=== PATIENT | female | born 1980 | race Caucasian/White ===

== ENCOUNTER 2018-08-17 04:10 | Emergency (ER) | payer OTHER ==
[~2018-08-17] VITALS: Ht 160 cm; Wt 56.7 kg
[2018-08-17 04:21] VITALS: BP 124/69
--- NOTE | 2018-08-17 04:53 | PHYS DOC ---
Past History Past Medical History: Depression, Seizure, UTI Past Surgical History: Other Additional Past Surgical Histo: abdominoplasty, breast augmentation Smoking: Non-smoker Alcohol Use: Rarely Drug Use: None Adult General Chief Complaint Chief Complaint: PAIN ON URINATION HPI HPI Patient is a 38-year-old female presents complaining of dysuria as well as hematuria. She noticed this on urination approximately 90 minutes ago. She took a dose of Pyridium to help with the discomfort. This is like previous urinary tract infections. Denies any vaginal bleeding or discharge. Some mild right sided lower back pain. No nausea or vomiting. No fever. Symptoms are moderate in intensity when urinating.[] Review of Systems Review of Systems Constitutional: Denies fever or chills [] Eyes: Denies change in visual acuity, redness, or eye pain [] HENT: Denies nasal congestion or sore throat [] Respiratory: Denies cough or shortness of breath [] Cardiovascular: No chest pain or palpitations[] GI: Denies abdominal pain, nausea, vomiting, bloody stools or diarrhea [] : See history of prior illness[] Musculoskeletal: Denies back pain or joint pain [] Integument: Denies rash or skin lesions [] Neurologic: Denies headache, focal weakness or sensory changes [] Endocrine: Denies polyuria or polydipsia [] All other systems were reviewed and found to be within normal limits, except as documented in this note. Allergies Allergies Allergies Coded Allergies Type Severity Reaction Last Updated Verified iodine Allergy Mild Rash 08/17/18 Yes Physical Exam Physical Exam Constitutional: Well developed, well nourished, no acute distress, non-toxic appearance. [] HENT: Normocephalic, atraumatic, bilateral external ears normal, oropharynx moist, no oral exudates, nose normal. [] Eyes: PERRLA, EOMI, conjunctiva normal, no discharge. [] Neck: Normal range of motion, no tenderness, supple, no stridor. [] Cardiovascular:Heart rate regular rhythm, no murmur [] Lungs & Thorax: Bilateral breath sounds clear to auscultation [] Abdomen: Bowel sounds normal, soft, no tenderness, no masses, no pulsatile masses. [] Skin: Warm, dry, no erythema, no rash. [] Back: No tenderness, no CVA tenderness. [] Extremities: No tenderness, no cyanosis, no clubbing, ROM intact, no edema. [] Neurologic: Alert and oriented X 3, normal motor function, normal sensory function, no focal deficits noted. [] Psychologic: Affect normal, judgement normal, mood normal. [] Current Patient Data Vital Signs Vital Signs Date Time Temp Pulse Resp B/P (MAP) Pulse Ox O2 Delivery O2 Flow Rate FiO2 08/17/18 04:21 97.8 67 16 100 Lab Results Laboratory Tests Test 08/17/18 04:44 POC Urine HCG, Qualitative hcg negative (Negative) EKG EKG [] Radiology/Procedures Radiology/Procedures [] Course & Med Decision Making Course & Med Decision Making Pertinent Labs and Imaging studies reviewed. (See chart for details) ED course: Patient arrived, was placed in bed, and tolerated exam well. After the return of laboratory studies, these were discussed with the patient voiced understanding. She was given initial dose of antibiotics in the emergency department as well as antipyretics. She tolerated these well. She was discharged in improved condition with all questions answered. Medical decision making: Patient appears to have a hemorrhagic urinary tract infection. There is no evidence of pyelonephritis on exam. No evidence of systemic toxicity. She is not .[] Dragon Disclaimer Dragon Disclaimer This electronic medical record was generated, in whole or in part, using a voice recognition dictation system. Departure Departure: Impression: Primary Impression: Urinary tract infection Disposition: 01 HOME, SELF-CARE Condition: IMPROVED Referrals: VIVEK DAVID (PCP) Follow-up in 2 days Patient Instructions: Urinary Tract Infection Additional Instructions: Drink plenty of fluids. Follow-up with your regular doctor in 2 days. Return to the ER if worsening discomfort, fever of more than 101, unable to tolerate liquids, or any other concerns. Scripts Meloxicam (MELOXICAM) 7.5 Mg Tablet 7.5 MG PO DAILY for PAIN, #20 TAB Prov: ISMA HENDRIX DO 08/17/18 Cephalexin (KEFLEX) 500 Mg Capsule 500 MG PO TID for UTI for 10 Days, #30 CAP Prov: ISMA HENDRIX DO 08/17/18 Problem Qualifiers Primary Impression: Urinary tract infection Urinary tract infection type: site unspecified Hematuria presence: with hematuria Qualified Codes: N39.0 - Urinary tract infection, site not specified; R31.9 - Hematuria, unspecified ISMA HENDRIX DO Aug 17, 2018 04:52
[2018-08-17 05:01] LABS: COLOR,URINE BROWN
[2018-08-17 05:02] LABS: BACTERIA,URINE FEW /HPF (0-FEW); BILIRUBIN,URINE NEG (NEG); CLARITY,URINE CLOUDY; GLUCOSE,URINE NEG (NEG); NITRITE,URINE POS (NEG); RBC,URINE TNTC /HPF (0-2); SQUAMOUS EPITHELIAL CELL,UR FEW /LPF; UROBILINOGEN,URINE 1 mg/dL (0.2 mg/dL); WBC,URINE TNTC /HPF (0-4)
[2018-08-17] MEDS ORDERED: IBUPROFEN 600 MG TABLET. PO ONE (05:08)
[2018-08-17] MEDS ORDERED: CEPHALEXIN 250 MG CAPSULE ONE (05:08)
[2018-08-17] MEDS ORDERED: CEPH-264 PO (05:09)
[2018-08-17] MEDS ORDERED: MELO7.5T29 PO (05:09)
[2018-08-17] MEDS: IBUPROFEN 600 MG TABLET. PO ONE (05:11)
[2018-08-17] MEDS: CEPHALEXIN 250 MG CAPSULE PO ONE (05:11)
== END 2018-08-17 05:17 | disposition home or self-care (01) ==
LOC: ER 04:10
DX: N39.0 Urinary tract infection, site not specified (principal); R31.9 Hematuria, unspecified; M54.5 Low back pain; F32.9 Major depressive disorder, single episode, unspecified; Z87.440 Personal history of urinary (tract) infections; Z88.8 Allergy status to other drugs, medicaments and biological substances
CPT/HCPCS: 81001; 81025; 87086; 99284

== ENCOUNTER 2019-06-11 12:51 | Emergency (ER) | payer OTHER ==
[~2019-06-11] VITALS: Ht 160 cm; Wt 57.6 kg
[2019-06-11 12:51] VITALS: BP 118/48
[~2019-06-11 12:51] MED LIST: CEPH-264 PO; MELO7.5T29 PO
--- NOTE | 2019-06-11 13:41 | RAD ---
CHEST AP ONLY Clinical History: Chest pain Technique: AP view of the chest was obtained at 06/11/2019 1:10 PM. Comparison: None. Findings: The cardiomediastinal silhouette is normal. The pulmonary vasculature is normal. The base of lungs is slightly underpenetrated this could be secondary to breast implants. There is no focal consolidation. Impression: No evidence of an acute cardiopulmonary process. Electronically signed by: Moise Solis III, MD (06/11/2019 1:38 PM) [id number]
--- NOTE | 2019-06-11 13:45 | PHYS DOC ---
Past History Past Medical History: Depression, Seizure, UTI Past Surgical History: Other Additional Past Surgical Histo: abdominoplasty, breast augmentation Smoking: Non-smoker Alcohol Use: Rarely Drug Use: None General Adult EDM: Chief Complaint: CHEST PAIN HPI: HPI: Patient is a 39-year-old female who presented to ER today for evaluation of chest pain substernally that last for few seconds at been going on for 2 weeks. Patient is not a smoker, she has no history hypertension, no history of blood clot disorder, no history of diabetes, no history of high cholesterol. Patient had no family history of blood clot disorder or heart disease. Patient denies any recent travel or operation. Patient works out regularly, she is not a smoker, not on control medication. Patient has no significant risks for having coronary artery disease or blood clot disorder. Patient denies any cough or fever. Review of Systems: Review of Systems: Constitutional: Denies fever or chills Eyes: Denies change in visual acuity HENT: Denies nasal congestion or sore throat Respiratory: Denies cough or shortness of breath Cardiovascular: Denies chest pain or edema GI: Denies abdominal pain, nausea, vomiting, bloody stools or diarrhea : Denies dysuria Musculoskeletal: Denies back pain or joint pain Integument: Denies rash Neurologic: Denies headache, focal weakness or sensory changes Endocrine: Denies polyuria or polydipsia Lymphatic: Denies swollen glands Psychiatric: Denies depression or anxiety Heart Score: HEART Score for Chest Pain: HEART Score for Chest Pain Response (Comments) Value History Slighlty/Non-Suspicious 0 ECG Normal 0 Age < 45 0 Risk Factors No Risk Factors 0 Troponin < Normal Limit 0 Total 0 Risk Factors: Risk Factors: DM, Current or recent (<one month) smoker, HTN, HLP, family history of CAD, obesity. Risk Scores: Score 0 - 3: 2.5% MACE over next 6 weeks - Discharge Home Score 4 - 6: 20.3% MACE over next 6 weeks - Admit for Clinical Observation Score 7 - 10: 72.7% MACE over next 6 weeks - Early Invasive Strategies Allergies: Allergies: Allergies Coded Allergies Type Severity Reaction Last Updated Verified iodine Allergy Mild Rash 08/17/18 Yes Physical Exam: PE: Constitutional: Well developed, well nourished, no acute distress, non-toxic appearance. [] HENT: Normocephalic, atraumatic, bilateral external ears normal, oropharynx moist, no oral exudates, nose normal. [] Eyes: PERRLA, EOMI, conjunctiva normal, no discharge. [] Neck: Normal range of motion, no tenderness, supple, no stridor. [] Cardiovascular:Heart rate regular rhythm, no murmur [] Lungs & Thorax: Bilateral breath sounds clear to auscultation [] Abdomen: Bowel sounds normal, soft, no tenderness, no masses, no pulsatile masses. [] Skin: Warm, dry, no erythema, no rash. [] Back: No tenderness, no CVA tenderness. [] Extremities: No tenderness, no cyanosis, no clubbing, ROM intact, no edema. [] Neurologic: Alert and oriented X 3, normal motor function, normal sensory function, no focal deficits noted. [] Psychologic: Affect normal, judgement normal, mood normal. [] Current Patient Data: Vital Signs: Vital Signs Date Time Temp Pulse Resp B/P (MAP) Pulse Ox O2 Delivery O2 Flow Rate FiO2 06/11/19 12:51 97.9 75 12 118/48 (71) 100 Room Air EKG: EKG: EKG WAS DONE AT 1256 RATE OF 68 BPM, NSR, NO STEMI, THERE IS SINGLE PVC. [] Radiology/Procedures: Radiology/Procedures: [][address] [address] IMAGING REPORT Signed PATIENT: BROOKS STOCK LACCOUNT: [id number] : 1980 LOCATION: ER AGE: 39 SEX: F EXAM STATUS: REG ER ORD. PHYSICIAN: MANDIE RANDALL DO REASON: chest pain PROCEDURE: CHEST AP ONLY CHEST AP ONLY Clinical History: Chest pain Technique: AP view of the chest was obtained at 06/11/2019 1:10 PM. Comparison: None. Findings: The cardiomediastinal silhouette is normal. The pulmonary vasculature is normal. The base of lungs is slightly underpenetrated this could be secondary to breast implants. There is no focal consolidation. Impression: No evidence of an acute cardiopulmonary process. Electronically signed by: Rl Moreno III, MD (06/11/2019 1:38 PM) [id number] DICTATED AND SIGNED BY: RL MORENO III, MD DATE: 06/11/19 4812 CC: VIVEK DAVID; MANDIE RANDALL DO ~ Course & Med Decision Making: Course & Med Decision Making Pertinent Labs and Imaging studies reviewed. (See chart for details) CHEST PAIN, NONSPECIFIC: The patient presents today with chest pain lasting [for a few seconds each over 2 weeks period]. The quality of the pain is very atypical for acute coronary syndrome. Additionally, the patient has minimal risk factors for coronary artery disease with a suggestion of good exercise tolerance and does not have ongoing chest pain. Given the duration of the chest pain , I do feel that from a risk stratification standpoint, the patient can be safely discharged home for outpatient evaluation by the primary care physician. The patient, however, fully understands that the evaluation today in no way rules out coronary artery disease as a possibility and that close followup is necessary as a component of a complete evaluation. The patient also understands that should the pain change, or become more frequent, more intense, or should the patient develop new symptoms, the patient is instructed to return immediately to the emergency room for reevaluation. However, at this time, given the lack of significant risk factors in conjunction with an atypical history in conjunction with normal EKG, CHEST XRAY despite the duration of pain and an unchanged or normal EKG, I do feel that the information available to us at this time suggests that this is unlikely to represent acute plaque rupture and that the risk of morbidity or mortality is low. Also considered today was the possibility of a pneumothorax, pneumonia, pulmonary embolus, mediastinitis, and thoracic aortic dissection. However, after careful consideration of the patient's clinical history and presentation and findings, there is no evidence to suggest any of these as a likely diagnosis and therefore feel that the continued pursuit of these etiologies is not warranted at this time. Dragon Disclaimer: Dragon Disclaimer: This electronic medical record was generated, in whole or in part, using a voice recognition dictation system. Departure Departure: Impression: Primary Impression: Chest pain Disposition: 01 HOME, SELF-CARE Condition: STABLE Referrals: VIVEK DAVID (PCP) MARICHUY CASTELLANOS MD PLEASE CALL THIS [facility] FOR OUTPATIENT EVALUATION Patient Instructions: Chest Pain (Nonspecific) MANDIE RANDALL DO Jun 11, 2019 13:45
--- NOTE | 2019-06-12 07:36 | EKG ---
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
== END 2019-06-11 13:50 | disposition home or self-care (01) ==
LOC: ER 12:51
DX: R07.2 Precordial pain (principal); Z87.440 Personal history of urinary (tract) infections; Z88.8 Allergy status to other drugs, medicaments and biological substances
CPT/HCPCS: 71045; 93005; 99283

== ENCOUNTER 2020-05-26 10:35 | Emergency (ER) | payer OTHER ==
[~2020-05-26] VITALS: Ht 160 cm; Wt 57.6 kg
[2020-05-26 11:00] VITALS: BP 119/78
--- NOTE | 2020-05-26 12:24 | PHYS DOC ---
Past History Past Medical History: Anxiety, Depression, Seizure, UTI Past Surgical History: Other Additional Past Surgical Histo: abdominoplasty, breast augmentation Smoking: Non-smoker Alcohol Use: Rarely Drug Use: None Adult General Chief Complaint Chief Complaint: Palpitations [facility] HPI Patient is a 40yo female presenting via POV for palpitations. These have been intermittent for ~2 weeks. Nothing known makes better or worse. Patient reports feelings of missing a beat, no ripping or tearing chest pain. Associated symptoms include mild SHOB and vague numbness in bilateral UEs. She has no cardiac history, no significant FHx cardiac disease, no concerning risk factors for CAD Review of Systems Review of Systems Fourteen body systems of review of systems have been reviewed. See HPI for pertinent positives and negative responses, other church all other systems are negative, non-pertinent or non-contributory Allergies Allergies Allergies Coded Allergies Type Severity Reaction Last Updated Verified iodine Allergy Mild Rash 08/17/18 Yes Physical Exam Physical Exam Constitutional: Well developed, well nourished, no acute distress, non-toxic appearance. HENT: Normocephalic, atraumatic, bilateral external ears normal, oropharynx moist, no oral exudates, nose normal. Eyes: PERRLA, EOMI, conjunctiva normal, no discharge. Neck: Normal range of motion, no tenderness, supple, no stridor. Cardiovascular: Heart rate regular, sinus rhythm, no murmurs rubs or gallops Lungs & Thorax: Bilateral breath sounds clear to auscultation Abdomen: Bowel sounds normal, soft, no tenderness, no masses, no pulsatile masses. Nonsurgical abdomen, no peritoneal signs Skin: Warm, dry, no erythema, no rash. Back: No tenderness, no CVA tenderness. Extremities: No tenderness, no cyanosis, no clubbing, ROM intact, no edema. Neurologic: Alert and oriented X 3, grossly normal motor & sensory function, no focal deficits noted. Psychologic: Affect normal, judgement normal, mood normal. Current Patient Data Vital Signs Vital Signs Date Time Temp Pulse Resp B/P (MAP) Pulse Ox O2 Delivery O2 Flow Rate FiO2 05/26/20 11:00 98.0 75 22 119/78 (92) 100 Lab Results Current Medications Medications (Trade) Dose Ordered Sig/Ralf Route PRN Reason Start Time Stop Time Status Last Admin Dose Admin Aspirin (Aspirin Chewable) 162 mg 1X ONCE PO 05/26/20 12:30 05/26/20 12:44 DC 05/26/20 13:11 Sodium Chloride 1,000 ml @ 1,000 mls/hr 1X ONCE IV 05/26/20 12:45 05/26/20 13:44 DC 05/26/20 13:11 EKG EKG EKG ordered and interpreted by myself at 1100 hrs. as sinus rhythm at 75 bpm, unremarkable intervals, no axis deviation, no acute ischemic findings, no STEMI Radiology/Procedures Radiology/Procedures Chest AP portable 05/26/2020. Reason for exam: Palpitations. Comparison is made with a study of 06/11/2019. No infiltrate or effusion is seen. Heart size and pulmonary vascularity appear normal. IMPRESSION: No acute abnormality. Electronically signed by: Samson Quevedo Jr., MD (05/26/2020 12:48 PM) [id number] Heart Score C/O Chest Pain: No HEART Score for Chest Pain: HEART Score for Chest Pain Response (Comments) Value History Slighlty/Non-Suspicious 0 ECG Normal 0 Age < 45 0 Risk Factors No Risk Factors 0 Troponin < Normal Limit 0 Total 0 Risk Factors: Risk Factors: DM, Current or recent (<one month) smoker, HTN, HLP, family history of CAD, obesity. Risk Scores: Risk Factors: DM, Current or recent (<one month) smoker, HTN, HLP, family history of CAD, obesity. Course & Med Decision Making Course & Med Decision Making Hemodynamically stable patient with HPI, PE and workup non-concerning for emergent/surgical issues Likely diagnosis PAC/PVC vs anxiety vs other. Less likely significant CAD or other serious pathology I discussed HEART score, PERC negative. Discussed little role in further workup while in ER. Patient has PCP, close follow-up for outpatient testing advised Rob Disclaimer Rob Disclaimer This electronic medical record was generated, in whole or in part, using a voice recognition dictation system. Departure Departure: Impression: Primary Impression: Palpitations Disposition: 01 DC HOME SELF CARE/HOMELESS Condition: STABLE Referrals: VIVEK DAVID (PCP) Patient Instructions: Palpitations Additional Instructions: You were seen for chest pain, weakness and palpitations. Your workup did not show any acute abnormalities today, but does not indicate that you do not have underlying cardiovascular disease. As discussed, you need to follow-up with your primary care physician tomorrow to discuss next steps in care. You will likely be a candidate for further provocative cardiac testing in outpatient setting and potential cardiology consultation for your symptoms. You should return to the ED if you develop worsening chest pain, shortness of breath, fever, abnormal sweating, leg swelling, or any other new or concerning symptoms. FRANTZ MOROCHO DO May 26, 2020 12:24
[2020-05-26] MEDS ORDERED: ASPIRIN CHEWABLE 81 MG TABLET. PO ONE (12:30)
--- NOTE | 2020-05-26 12:31 | EKG ---
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
[2020-05-26 12:42] LABS: U PREG PATIENT NEGATIVE (NEG)
[2020-05-26] MEDS ORDERED: IV NORMAL SALINE 1,000ML 1,000 ML IV ONE (12:45)
--- NOTE | 2020-05-26 12:50 | RAD ---
Chest AP portable 05/26/2020. Reason for exam: Palpitations. Comparison is made with a study of 06/11/2019. No infiltrate or effusion is seen. Heart size and pulmonary vascularity appear normal. IMPRESSION: No acute abnormality. Electronically signed by: Samson Quevedo Jr., MD (05/26/2020 12:48 PM) [id number]
[2020-05-26 13:11] LABS: BASO % 0 % (0-3); EOS % 0 % (0-3); HEMATOCRIT 40.6 % (36.0-47.0); HEMOGLOBIN 13.6 g/dL (12.0-15.5); LYMPH # 1.3 x10^3/uL (1.0-4.8); LYMPH % 25 % (24-48); MEAN CORPUSCULAR HEMOGLOBIN 32 pg (25-35); MEAN CORPUSCULAR HGB CONC 34 g/dL (31-37); MEAN CORPUSCULAR VOLUME 96 fL (79-100); MONO # 0.4 x10^3/uL (0.0-1.1); MONO % 7 % (0-9); NEUT # 3.7 x10^3uL (1.8-7.7); NEUT % 68 % (31-73); PLATELET COUNT 279 x10^3/uL (140-400); RED BLOOD COUNT 4.22 x10^6/uL (3.50-5.40); RED CELL DISTRIBUTION WIDTH 12.3 % (11.5-14.5); WHITE BLOOD COUNT 5.4 x10^3/uL (4.0-11.0)
[2020-05-26 13:18] LABS: CALCIUM 9.5 mg/dL (8.5-10.1); CREATININE 0.8 mg/dL (0.6-1.0); GFR 80.3; POTASSIUM 3.5 mmol/L (3.5-5.1)
[2020-05-26 13:25] LABS: ALBUMIN 3.9 g/dL (3.4-5.0); ALBUMIN/GLOBULIN RATIO 1.3 (1.0-1.7); TOTAL BILIRUBIN 0.3 mg/dL (0.2-1.0)
== END 2020-05-26 13:48 | disposition home or self-care (01) ==
LOC: ER 10:35
DX: R00.2 Palpitations (principal); Z87.440 Personal history of urinary (tract) infections; Z88.6 Allergy status to analgesic agent
CPT/HCPCS: 36415; 71045; 80053; 81025; 84484; 85025; 93005; 96360; 99285; J7030